=== PATIENT | female | born 1950 | race Caucasian/White ===

== ENCOUNTER 2023-11-23 06:35 | Day surgery (SDC) | payer BC, SELFPAY ==
[2023-11-13 08:57] VITALS: BMI 34.3
[2023-11-13 09:27] LABS: Hematocrit 42.6 % (37.0-47.0); Hemoglobin 14.6 g/dL (12.0-16.0); Mean Corp Hgb Conc. 34.3 g/dL (33.0-37.0); Mean Corpuscular Hgb 31.3 pg (27.0-31.0); Mean Corpuscular Volume 91.2 fL (81.0-99.0); Mean Platelet Volume 10.2 fL (7.4-10.4); Platelet Count 234 10^3/uL (130-400); Red Blood Cell Count 4.67 10^6/uL (4.20-5.40); Red Cell Dist. Width 12.2 % (11.5-14.5); White Blood Cell Count 4.3 10^3/uL (4.8-10.8)
[2023-11-13 10:08] LABS: Blood Urea Nitrogen 23 mg/dl (7-17); Calcium 9.9 mg/dl (8.4-10.2); Carbon Dioxide 26 mmol/L (22-30); Chloride 103 mmol/L (98-107); Estimated Creatinine Clearance 64 ml/min; Glucose 101 mg/dl (70-99); Potassium 4.9 mmol/L (3.5-5.1); Sodium 141 mmol/L (135-145); eGFR > 60.00
[2023-11-23] VITALS (9 sets, daily range): BP systolic 119–155; BP diastolic 66–80; BMI 34.3; BMI 22.3
[2023-11-23] MEDS: Pyridium 200 MG PO (12:54)
[2023-11-23] MEDS: NORMOSOL-R/PLASMALYTE-A 1000 IV ×2 (13:06→17:51)
[2023-11-23 16:25] LABS: Hematocrit 36.1 % (37.0-47.0); Hemoglobin 12.6 g/dL (12.0-16.0)
[2023-11-23 16:43] LABS: Blood Urea Nitrogen 20 mg/dl (7-17); Calcium 8.7 mg/dl (8.4-10.2); Carbon Dioxide 23 mmol/L (22-30); Chloride 105 mmol/L (98-107); Estimated Creatinine Clearance 64 ml/min; Glucose 125 mg/dl (70-99); Potassium 4.1 mmol/L (3.5-5.1); Sodium 138 mmol/L (135-145); eGFR > 60.00
[2023-11-23] MEDS: ROXICODONE 2.5 MG PO (20:55)
[2023-11-23] MEDS: COLACE 100 MG PO (20:56)
--- NOTE | 2023-11-23 21:54 | PTCARENOTE ---
Patient care note: HS care provided. Patient OOB to bathroom with contact guard assist for HS care. Tolerated well. Small amount of bloody vaginal discharge noted on peripad, approx 3-5cc. Hrat and pericare provided. Patient medicated for
'cramping pressure' type pain, rating 5/10, in lower abdomen. Patient sleeping upon reassessment of pain. B/L compression stockings and sequential device in use while in bed. IV Clean.dry/intact, fluids infusing as ordered. Call vargas within
reach. Plan of care continues as documented.
[2023-11-24] MEDS: NORMOSOL-R/PLASMALYTE-A 1000 IV (01:16)
[2023-11-24] MEDS: ROXICODONE 5 MG PO ×2 (01:27→05:39)
[2023-11-24 01:33] VITALS: BP 121/65
[2023-11-24 05:19] VITALS: BP 119/64
[2023-11-24 05:51] LABS: Hematocrit 34.9 % (37.0-47.0); Hemoglobin 12.2 g/dL (12.0-16.0); Mean Corpuscular Hgb 31.4 pg (27.0-31.0); Mean Corpuscular Volume 89.9 fL (81.0-99.0); Mean Platelet Volume 10.2 fL (7.4-10.4); Platelet Count 213 10^3/uL (130-400); Red Blood Cell Count 3.88 10^6/uL (4.20-5.40); Red Cell Dist. Width 12.3 % (11.5-14.5); White Blood Cell Count 11.5 10^3/uL (4.8-10.8)
[2023-11-24 06:00] LABS: Blood Urea Nitrogen 16 mg/dl (7-17); Carbon Dioxide 28 mmol/L (22-30); Chloride 103 mmol/L (98-107); Estimated Creatinine Clearance 60 ml/min; Potassium 5.2 mmol/L (3.5-5.1); Sodium 140 mmol/L (135-145)
--- NOTE | 2023-11-24 06:28 | PTCARENOTE ---
Hart removed with attached vaginal packing at 0545, per order. Packing with very small amount of bloody drainage. Pericare provided. Patient due to void with post void residual bladder scan. Oncoming shift to continue current plan of care.
--- NOTE | 2023-11-24 07:24 | W.PN.GYN ---
Today's Communication / Plan
-
1. voiding trial
2. d/c home
Physician Note
-
Assessment and Plan:
73-year-old woman postop day 1 status post sacrospinous ligament fixation, anterior and posterior colporrhaphy with perineoplasty, cystoscopy patient surgeries complicated by an EBL of 100 mL and bleeding around the sacrospinous ligaments this
required Floseal x 2 as well as IV TXA. The patient was stable in the operative room in the PACU. Her vital signs remained stable overnight and is meeting postoperative milestones. Her hemoglobin was stable at 12.2 this morning on postoperative
day 1. Her vaginal packing was removed and there was no significant vaginal bleeding.
1. Postoperative Care:
-Hep-Lock IV enter
-Regular diet
-DVT ppx
-Pain contol: IV tordaol this morning, continue Tylenol and oxycodone, perineal ice packs
-CBC: hgb stable overnight
-BMP: WNL
-UOP: adequate
-Voiding trial: ogden removed at 5am, awaiting void
2. Dispo
-D/c home today
Subjective:
No acute complaints. pain's located in right gluteal region controlled with oxycodone and tylenol. patient would like additional pain medication.
Objective:
Intake and Output
11/22/23 11/23/23 11/24/23 11/25/23
06:59 06:59 06:59 06:59
Intake Total 2280 / 2280
Output Total 1779
Balance 500 / 500
Intake:
Oral fluids 680 / 680
IV fluids (Total) 1600 / 1600
normosol 100 / 100
Output:
Urine, Ogden 1779
Vital Signs
Temp Pulse Resp BP Pulse Ox
98.0 F 70 18 119/64 96
11/24/23 05:19 11/24/23 05:19 11/24/23 05:19 11/24/23 05:19 11/24/23 05:19
Lab Results
11/24/23 05:21
11/24/23 05:21
Exam
Abdomen: soft, nontender, nondistended
: minimal spotting on pad
[2023-11-24] MEDS: TORADOL 15 MG IV (07:36)
[2023-11-24] MEDS: COLACE 100 MG PO (07:37)
--- NOTE | 2023-11-24 08:02 | PTCARENOTE ---
Pt given Toradol 15 mg IV and Colace as ordered. Pt OOB to BR and passed 200 ml dark yellow urine. Bladder scan for [address] Olivera notified.
[2023-11-24 08:30] VITALS: BP 110/63
--- NOTE | 2023-11-24 09:01 | PTCARENOTE ---
Received pt this am, awake, alert and oriented x3. Eating breakfast. IV infusing via pump at 125ml/hr to right forearm. [place] pad clean and dry, no drainage noted. Pt c/o rectal pain, Toradol given as ordered. Pt assisted OOB to BR.
--- NOTE | 2023-11-24 09:21 | PTCARENOTE ---
Pt voided 300 mls and bladder scan was 110 ml residual urine.
--- NOTE | 2023-11-24 10:07 | CM ---
Met with pt and her at bedside
Pt reports she lives in a 2 story condo; 5 steps to enter. 14 steps to 2nd fl
Retired, active, independent
DME - none
SNF - in past, unable to recall facility
HH - denies past hx
Has ride home at discharge
PCP - Dr María Dubois
Pharm - [facility]
Plan - anticipate home no needs
--- NOTE | 2023-11-24 10:09 | PTCARENOTE ---
Pt OK for discharge home per Dr Olivera
== END 2023-11-24 10:17 | disposition home or self-care (01) ==
LOC: SDS 06:35
PROVIDERS: ATTENDING PHYSICIAN Obstetrics & Gynecology; FAMILY PHYSICIAN Nurse Practitioner Adult Health
PROC: 0JQC0ZZ Repair Pelvic Region Subcutaneous Tissue and Fascia, Open Approach (ICD-10-PCS; 2023-11-23)
PROC: 0USG7ZZ Reposition Vagina, Via Natural or Artificial Opening (ICD-10-PCS; 2023-11-23)
DX: N81.3 Complete uterovaginal prolapse (principal); N39.3 Stress incontinence (female) (male); N36.41 Hypermobility of urethra
CPT/HCPCS: 57282; 57260; 36415; 80048; 80051; 82565; 84520; 85014; 85018; 85027; 86850; 86900; 86901; 93005